=== PATIENT | male | born 1940 | race Caucasian/White ===

== ENCOUNTER 2017-12-28 07:38 | Day surgery (SDC) | payer MEDICARE, BC ==
[~2017-12-28 07:38] MED LIST: Acetaminophen TAB* 325 MG PO PRN; Buffered Lidocaine 0.9% SYRIN* 5 ML/SYR SYRINGE INTRADERM ONE; Cyclopentolate 1% OPTH.SOL* 2 ML BTL ONE; Ketorolac 0.5% OPHTH (NF) 0.5 % 5 ML BTL ONE; Lidocaine 1% MPF* 2 ML VIAL ONE; Neomycin/Polymy/Dex OPHTH.OIN* 3.5 GM ONE; Phenylephrine 2.5% OPTH.SOL* 2 ML BTL ONE; Povidone Iodine 5% OPTH* 30 ML BTL ONE; Tetracaine 0.5% OPTH.SOL 4 ML* 1 DROP BTL ONE; Tropicamide 1% OPTH.SOL* BTL ONE; acetaZOLAMIDE TAB* 250 MG ONE
[2017-12-28] MEDS ORDERED: Cyclopentolate 1% OPTH.SOL* 2 ML BTL ONE (07:51)
[2017-12-28] MEDS ORDERED: Phenylephrine 2.5% OPTH.SOL* 2 ML BTL ONE (07:51)
[2017-12-28] MEDS ORDERED: Povidone Iodine 5% OPTH* 30 ML BTL ONE (07:51)
[2017-12-28] MEDS ORDERED: Neomycin/Polymy/Dex OPTH.SUSP* MAXITROL 0.1% 5 ML ONE (07:51)
[2017-12-28] MEDS ORDERED: Ketorolac 0.5% OPHTH (NF) 0.5 % 5 ML BTL ONE (07:51)
[2017-12-28] MEDS ORDERED: acetaZOLAMIDE TAB* 250 MG ONE (07:51)
[2017-12-28] MEDS ORDERED: Lidocaine 1% MPF* 2 ML VIAL ONE (07:51)
[2017-12-28] MEDS ORDERED: Lidocaine 2% EPI 1:200000 MPF*10-20 ML VIAL ONE (07:51)
[2017-12-28] MEDS ORDERED: Proparacaine 0.5% OPHTH.SOL* 15 ML BTL ONE (07:52)
[2017-12-28] MEDS ORDERED: Midazolam* 1 MG/ML 2 ML VIAL (2 MG) ONE (09:07)
[2017-12-28] MEDS ORDERED: fentaNYL* 50 MCG/ML 2 ML VIAL (100 MCG VIAL) ONE (09:07)
[2017-12-28 10:44] VITALS: BP 109/76
--- NOTE | 2017-12-28 12:58 | OP ---
OPERATIVE NOTE: DATE OF OPERATION: 12/28/17 - [facility] DATE OF : 40 SURGEON: Nnamdi Charles M.D. PREOPERATIVE DIAGNOSIS: Cataract, left eye. POSTOPERATIVE DIAGNOSIS: Cataract, left eye. OPERATIVE PROCEDURE: Extracapsular cataract extraction with intraocular lens implant , left eye. PROCEDURE: The patient was brought to the operating room after being given 1/2 % Alcaine with epinephrine drops in the preoperative area. The eye was prepped and draped in the usual sterile fashion. Sterile drape and eyelid speculum were placed. Again, topical 1/2% Alcaine with epinephrine was given. A paracentesis incision was made at the 3 o'clock position with the No.75 blade. Clear cornea incision 2.2 x 2.2-mm was created at the 3 o'clock position starting at the anterior limbus using the 2.2-mm keratome. The anterior chamber was irrigated with 0.4 mL of 1% non-preservative intracameral lidocaine and filled with DisCoVisc. A capsulorrhexis was completed using the cystotome and the Utrata forceps. Hydrodissection was performed with balanced salt solution. The lens nucleus was removed with the Phacoemulsification handpiece without incident. Cortex was removed with the irrigation-aspiration handpiece. The capsular bag was re-inflated using DisCoVisc and an SN60WF 19.5 implant was inserted with the shooter. The irrigation-aspiration handpiece was used to remove all residual DisCoVisc. The eye was refilled with balanced salt solution and the wound checked and found to be watertight. Topical Maxitrol drops were given. [id number]/[facility] #: [id number] MTDD
== END 2017-12-28 10:35 | disposition home or self-care (01) ==
LOC: OREAST 07:38
PROVIDERS: ATTEND Specialist
DX: H25.812 Combined forms of age-related cataract, left eye (principal); H33.193 Other retinoschisis and retinal cysts, bilateral; Z95.1 Presence of aortocoronary bypass graft; Z85.51 Personal history of malignant neoplasm of bladder; I25.10 Atherosclerotic heart disease of native coronary artery without angina pectoris; I10 Essential (primary) hypertension; E78.5 Hyperlipidemia, unspecified
CPT/HCPCS: A9270-GY; J2250; J3010; V2632

== ENCOUNTER 2018-04-03 06:07 | Day surgery (SDC) | payer MEDICARE, BC ==
[~2018-04-03 06:07] MED LIST changes: -Acetaminophen TAB* 325 MG PO PRN; -Cyclopentolate 1% OPTH.SOL* 2 ML BTL ONE; -Ketorolac 0.5% OPHTH (NF) 0.5 % 5 ML BTL ONE; -Lidocaine 1% MPF* 2 ML VIAL ONE; -Neomycin/Polymy/Dex OPHTH.OIN* 3.5 GM ONE; -Phenylephrine 2.5% OPTH.SOL* 2 ML BTL ONE; -Povidone Iodine 5% OPTH* 30 ML BTL ONE; -Tetracaine 0.5% OPTH.SOL 4 ML* 1 DROP BTL ONE; -Tropicamide 1% OPTH.SOL* BTL ONE; -acetaZOLAMIDE TAB* 250 MG ONE
[2018-04-03] MEDS ORDERED: ceFAZolin 2 GM PREMIX (*) 2 GM/50 ML BAG IVPB ONE (06:08)
[2018-04-03] MEDS ORDERED: Lidocain 1% EPI 1:100,000 * 30 ML MDV ONE (07:12)
[2018-04-03] MEDS ORDERED: Bupivacaine 0.5% PF 10 ML VIAL INJ ONE (07:13)
[2018-04-03] MEDS ORDERED: fentaNYL* 50 MCG/ML 2 ML VIAL (100 MCG VIAL) ONE (07:31)
[2018-04-03] MEDS ORDERED: Midazolam* 1 MG/ML 2 ML VIAL (2 MG) ONE (07:31)
[2018-04-03] MEDS ORDERED: Lidocaine 2% PF * 5 ML VIAL ONE (07:36)
[2018-04-03] MEDS ORDERED: Propofol* 10 MG/ML 20 ML BTL IV PUSH ONE (07:36)
[2018-04-03] MEDS ORDERED: Naloxone* 0.4 MG/ML 1 ML VIAL IV PRN (08:36)
[2018-04-03] MEDS ORDERED: oxyCODONE/Acetamin 5/325 MG* TAB PO PRN (08:56)
[2018-04-03 09:35] VITALS: BP 143/81
--- NOTE | 2018-04-04 11:35 | OP ---
DATE OF OPERATION: 04/03/18 [facility] DATE OF : 40 SURGEON: Magdy Cordon MD RECORDS ANALYST: MONIKA Todd ANESTHESIOLOGIST: Dr. Caro. ANESTHESIA: Local with monitored anesthesia care. PRE-OP DIAGNOSIS: Left inguinal hernia. POST-OP DIAGNOSIS: Left indirect inguinal hernia. OPERATIVE PROCEDURE: Open repair with Covidien ProGrip mesh of a left direct inguinal hernia. ESTIMATED BLOOD LOSS: Minimal. FLUIDS: 1 L of crystalloid. SPECIMENS: None. WOUND CLASSIFICATION: I. DRAINS: None. DESCRIPTION OF PROCEDURE: Written and informed consent was obtained, the left groin was marked with indelible ink, and preoperative antibiotics were administered. The patient was taken to the operating room, placed in the supine position. Anesthesia was administered. The left lower abdomen and groin were prepped and draped in usual sterile fashion. Time-out verification was completed. 0.25% Marcaine mixed with 1% lidocaine with epinephrine was infiltrated in the left groin. An oblique incision was made several fingerbreadths above the inguinal crease. Porter's fascia was divided and the external oblique aponeurosis was identified and opened in the direction of its fibers to expose the underlying spermatic cord in the inguinal floor. Spermatic cord was encircled with an [id number] Thee drain at the pubic tubercle. The direct space appeared to be intact without evidence of hernia. Careful evaluation and dissection of the cord revealed a moderate sized indirect inguinal hernia sac, which was from the cord and its structures. This was then reduced into a somewhat patulous internal ring. Care was taken to prevent injury to the vas deferens and other spermatic cord contents. The internal ring was then plicated with several 3-0 Vicryl sutures in anticipation of mesh placement. Next, the ProGrip polyester mesh was then placed and sutured to pubic tubercle medially and then placed over the direct and indirect spaces without wrinkling or tension to reconstruct the internal ring. This mesh laid nicely and several 0 Vicryl sutures were used to adhere it to the inguinal ligament inferiorly in an interrupted fashion. Hemostasis was then assured. Additional Marcaine was infiltrated. The external oblique aponeurosis was closed with a running 3-0 Vicryl suture. Porter's fascia was closed with a running 3-0 Vicryl suture. The skin was approximated with subcuticular 4-0 running Vicryl suture. Steri-Strips and sterile dressings were applied. The patient tolerated the procedure well, was taken to recovery room in stable condition. [id number]/[facility] #: [id number]
== END 2018-04-03 10:08 | disposition home or self-care (01) ==
LOC: OR 06:07
PROVIDERS: ATTEND Surgery
DX: K40.90 Unilateral inguinal hernia, without obstruction or gangrene, not specified as recurrent (principal); R01.1 Cardiac murmur, unspecified; E78.2 Mixed hyperlipidemia; I25.10 Atherosclerotic heart disease of native coronary artery without angina pectoris; I10 Essential (primary) hypertension; E78.00 Pure hypercholesterolemia, unspecified; K21.9 Gastro-esophageal reflux disease without esophagitis; Z85.46 Personal history of malignant neoplasm of prostate; Z85.51 Personal history of malignant neoplasm of bladder
CPT/HCPCS: J0690; J2250; J2704; J3010

== ENCOUNTER 2024-05-17 14:25 | Inpatient (IN) ==
[2024-05-17] MEDS: Iodixanol (CONTRAST) 320 MG/ML 100 ML SDV IV ONE (14:51)
[2024-05-17 14:52] LABS: ABS Lymphocytes 0.8 10^3/uL (1.0-4.8); ABS Monocytes 0.7 10^3/uL (0.0-1.1); ABS Nucleated RBC 0.01 10^3/ul; Eosinophil % 0.2 %; Hematocrit 44.8 % (38-53); Hemoglobin 15.6 g/dL (13.2-16.3); Lymphocyte % 10.9 %; Mean Corpuscular Hemoglobin 29.7 pg (27-33); Mean Corpuscular Hgb Conc 34.7 g/dL (31-36); Mean Corpuscular Volume 85.4 fL (80-97); Mean Platelet Volume 7.6 fL (7.5-11.2); Nucleated Red Blood Cells % 0.1 %/100WBC (0.0-0.8); Platelet Count 146 10^3/uL (150-450); Red Blood Count 5.24 10^6/uL (4.06-5.63); Red Cell Distribution Width 13.6 % (12-17); White Blood Count 7.6 10^3/uL (3.6-10.2)
[2024-05-17 15:02] LABS: Activated Partial Thrombo Time 31.7 seconds (26.0-38.0); INR 1.21 (0.85-1.14)
[2024-05-17] MEDS: Lactated Ringers 1000 ml BAG 1,000 ML IV ONE (15:18)
[2024-05-17] MEDS: Acetaminophen IV 1 GM/100ML 1,000 MG/100 ML BAG IV ONE (15:18)
[2024-05-17] MEDS: Piperacillin/Tazobac 3.375 BAG 3.375 GM/100 ML BAG IV ONE (15:26)
[2024-05-17 15:54] LABS: Albumin 4.9 g/dL (3.2-5.2); Albumin/Globulin Ratio 2.1 (1-3); Calcium 9.6 mg/dL (8.6-10.3); Creatinine, Serum 1.09 mg/dL (0.67-1.17); Direct Bilirubin 0.3 mg/dL (0.03-0.18); Globulin 2.3 g/dL (2-4); HDL Cholesterol 39.6 mg/dL; Potassium 4.2 mmol/L (3.5-5.0); Total Bilirubin 1.3 mg/dL (0.2-1.0); Total Protein 7.2 g/dL (6.4-8.9); eGFR CKD-EPI 67.3 (>60)
[2024-05-17 16:06] LABS: TSH Ultra Thyroid Stim Horm 1.07 mcIU/mL (0.34-5.60)
[2024-05-17 18:10] LABS: Urine Appearance Clear; Urine Bilirubin Negative (Negative); Urine Blood Trace (Negative); Urine Color Light-Yellow; Urine Glucose Negative (Negative); Urine Ketones 1+ (Negative); Urine Nitrite Negative (Negative); Urine Protein Trace (Negative); Urine Specific Gravity 1.045 (1.002-1.030); Urine Urobilinogen Negative (Negative)
[2024-05-17] MEDS ORDERED: hydrALAZINE 20 mg/ml 1 ML Vial IV IV SLOW PU PRN (19:30)
[2024-05-17] MEDS ORDERED: Haloperidol 5 mg/ml SDV IV/IM 5 MG/ML AMP ONE (21:12)
[2024-05-17] MEDS: Haloperidol 5 mg/ml SDV IV/IM 5 MG/ML AMP IV SLOW PU ONE (21:15)
[2024-05-17] MEDS ORDERED: LORazepam 2 MG/ML 1 mL Syringe IV ONE (21:24)
[2024-05-17] MEDS ORDERED: LORazepam 2 mg VIAL 1 ml ONE (21:31)
[2024-05-17] MEDS: LORazepam 2 mg VIAL 1 ml IV PUSH ONE (21:34)
[2024-05-17] MEDS: cefTRIAXone 1 gm/50 mL D5W 1 GM/50 ML BAG IV SCH (21:54)
[2024-05-17] MEDS: Lactated Ringers 1000 ml BAG 1,000 ML IV SCH (21:54)
[2024-05-17] MEDS: DOXYcycline 100 MG in NS 0.9% 250 ml 250 ML IVPB ONE (23:43)
[2024-05-18 06:17] LABS: ABS Lymphocytes 0.8 10^3/uL (1.0-4.8); ABS Monocytes 0.8 10^3/uL (0.0-1.1); ABS Neutrophils 6.5 10^3/uL (1.5-7.6); Eosinophil % 0.1 %; Hematocrit 42.9 % (38-53); Hemoglobin 14.6 g/dL (13.2-16.3); Lymphocyte % 9.8 %; Mean Corpuscular Hemoglobin 29.5 pg (27-33); Mean Corpuscular Volume 86.7 fL (80-97); Mean Platelet Volume 7.3 fL (7.5-11.2); Platelet Count 133 10^3/uL (150-450); Red Blood Count 4.94 10^6/uL (4.06-5.63); Red Cell Distribution Width 13.6 % (12-17); White Blood Count 8.2 10^3/uL (3.6-10.2)
[2024-05-18 06:43] LABS: Calcium 8.8 mg/dL (8.6-10.3); Creatinine, Serum 1.3 mg/dL (0.67-1.17); eGFR CKD-EPI 54.2 (>60)
[2024-05-18 06:44] LABS: Albumin 4.3 g/dL (3.2-5.2); Total Bilirubin 1.2 mg/dL (0.2-1.0)
[2024-05-18 06:57] LABS: Albumin/Globulin Ratio 2.2 (1-3); Direct Bilirubin 0.2 mg/dL (0.03-0.18); Magnesium 1.5 mg/dL (1.9-2.7); Phosphorus 2.2 mg/dL (2.5-5.0); Total Protein 6.3 g/dL (6.4-8.9)
[2024-05-18] MEDS: Enoxaparin 40 MG/0.4 ML SYR SUBCUT SCH (07:25)
[2024-05-18] MEDS: Aspirin EC 81 mg TAB.EC (enteric coated) PO SCH (08:02)
[2024-05-18] MEDS: Magnesium Sulf 4 GM/100 ML IV 4,000 MG/100 ML BAG IVPB ONE (09:00)
[2024-05-18] MEDS ORDERED: Lactated Ringers 1000 ml BAG 1,000 ML IV SCH (11:00)
[2024-05-18] MEDS: Lactated Ringers 1000 ml BAG 1,000 ML IV ONE (11:20)
[2024-05-18] MEDS: cefTRIAXone 2 gm/50 mL D5W 2 GM/50 ML BAG IV SCH (12:05)
[2024-05-18 15:08] LABS: C Reactive Protein 2.24 mg/L (<8.01)
[2024-05-18] MEDS: Acetaminophen IV 1 GM/100ML 1,000 MG/100 ML BAG IV PRN ×2 (15:34→22:24)
[2024-05-18 15:45] LABS: RBC Parasite Smear No Parasites Seen (No Parasite)
[2024-05-18 15:53] LABS: C Reactive Protein 5.52 mg/L (<8.01)
[2024-05-18 17:02] LABS: Urine Appearance Clear; Urine Bilirubin Negative (Negative); Urine Blood 1+ (Negative); Urine Color Light-Yellow; Urine Glucose Negative (Negative); Urine Ketones 1+ (Negative); Urine Nitrite Negative (Negative); Urine Protein Trace (Negative); Urine Urobilinogen Negative (Negative); Urine pH 5.5 (5.0-8.0)
[2024-05-18 17:09] LABS: ABS Lymphocytes 0.8 10^3/uL (1.0-4.8); ABS Monocytes 1.3 10^3/uL (0.0-1.1); ABS Neutrophils 8.3 10^3/uL (1.5-7.6); ABS Nucleated RBC 0.01 10^3/ul; Hematocrit 38.6 % (38-53); Hemoglobin 13.1 g/dL (13.2-16.3); Lymphocyte % 7.6 %; Mean Corpuscular Hemoglobin 28.9 pg (27-33); Mean Corpuscular Hgb Conc 33.9 g/dL (31-36); Mean Corpuscular Volume 85.1 fL (80-97); Mean Platelet Volume 7.9 fL (7.5-11.2); Nucleated Red Blood Cells % 0.1 %/100WBC (0.0-0.8); Platelet Count 140 10^3/uL (150-450); Red Blood Count 4.53 10^6/uL (4.06-5.63); Red Cell Distribution Width 13.5 % (12-17); White Blood Count 10.4 10^3/uL (3.6-10.2)
[2024-05-18 17:18] LABS: Urine Bacteria Absent /HPF (Absent); Urine Red Blood Cell 1+(3-5/hpf) /HPF (0-Trace); Urine White Blood Cell Trace(0-5/hpf) /HPF (0-Trace)
[2024-05-18 17:45] LABS: Albumin 3.8 g/dL (3.2-5.2); Albumin/Globulin Ratio 2.2 (1-3); C Reactive Protein 6.34 mg/L (<8.01); Calcium 8.2 mg/dL (8.6-10.3); Creatinine, Serum 1.28 mg/dL (0.67-1.17); Direct Bilirubin 0.2 mg/dL (0.03-0.18); Globulin 1.7 g/dL (2-4); Indirect Bilirubin 0.8 mg/dL (0.3-1.0); Magnesium 2.3 mg/dL (1.9-2.7); Phosphorus 2.6 mg/dL (2.5-5.0); Potassium 3.5 mmol/L (3.5-5.0); Total Protein 5.5 g/dL (6.4-8.9); eGFR CKD-EPI 55.2 (>60)
[2024-05-18 18:41] LABS: Erythrocyte Sed Rate 14 mm/Hr (0-19)
[2024-05-18] MEDS: DOXYcycline 100 MG in NS 0.9% 250 ml 250 ML IVPB SCH (20:41)
[2024-05-19 05:37] LABS: ABS Neutrophils 8.2 10^3/uL (1.5-7.6); ABS Nucleated RBC 0.01 10^3/ul; Eosinophil % 0.1 %; Hematocrit 40.9 % (38-53); Hemoglobin 14.2 g/dL (13.2-16.3); Lymphocyte % 9.5 %; Mean Corpuscular Hemoglobin 29.6 pg (27-33); Mean Corpuscular Hgb Conc 34.8 g/dL (31-36); Mean Corpuscular Volume 84.9 fL (80-97); Mean Platelet Volume 7.7 fL (7.5-11.2); Nucleated Red Blood Cells % 0.1 %/100WBC (0.0-0.8); Platelet Count 124 10^3/uL (150-450); Red Blood Count 4.81 10^6/uL (4.06-5.63); Red Cell Distribution Width 13.7 % (12-17); White Blood Count 10.2 10^3/uL (3.6-10.2)
[2024-05-19 06:13] LABS: Albumin/Globulin Ratio 2.1 (1-3); C Reactive Protein 18.01 mg/L (<8.01); Calcium 8.7 mg/dL (8.6-10.3); Creatinine, Serum 1.25 mg/dL (0.67-1.17); Globulin 1.9 g/dL (2-4); Magnesium 2.1 mg/dL (1.9-2.7); Total Bilirubin 1.2 mg/dL (0.2-1.0); Total Protein 5.9 g/dL (6.4-8.9); eGFR CKD-EPI 56.8 (>60)
[2024-05-19 07:02] LABS: Erythrocyte Sed Rate 15 mm/Hr (0-19)
[2024-05-19] MEDS: Lactated Ringers 1000 ml BAG 1,000 ML IV SCH (12:25)
[2024-05-19] MEDS ORDERED: Calcium Carb (TUMS) 500 mg CHEW TAB PO PRN (17:22)
[2024-05-20 06:29] LABS: ABS Lymphocytes 0.6 10^3/uL (1.0-4.8); ABS Monocytes 0.8 10^3/uL (0.0-1.1); ABS Neutrophils 6.6 10^3/uL (1.5-7.6); Eosinophil % 0.3 %; Hematocrit 36.2 % (38-53); Hemoglobin 12.8 g/dL (13.2-16.3); Mean Corpuscular Hgb Conc 35.3 g/dL (31-36); Mean Corpuscular Volume 84.9 fL (80-97); Mean Platelet Volume 7.8 fL (7.5-11.2); Nucleated Red Blood Cells % 0.1 %/100WBC (0.0-0.8); Platelet Count 117 10^3/uL (150-450); Red Blood Count 4.27 10^6/uL (4.06-5.63); Red Cell Distribution Width 13.3 % (12-17)
[2024-05-20 06:53] LABS: Albumin 3.5 g/dL (3.2-5.2); Albumin/Globulin Ratio 2.1 (1-3); C Reactive Protein 24.23 mg/L (<8.01); Calcium 8.2 mg/dL (8.6-10.3); Creatinine, Serum 1.05 mg/dL (0.67-1.17); Globulin 1.7 g/dL (2-4); Magnesium 1.7 mg/dL (1.9-2.7); Potassium 3.4 mmol/L (3.5-5.0); Total Bilirubin 0.8 mg/dL (0.2-1.0); Total Protein 5.2 g/dL (6.4-8.9)
[2024-05-20] MEDS: Magnesium Sulfate 2 gm BAG 2 GM/50 ML BAG IVPB ONE (10:19)
[2024-05-20] MEDS: Magnesium Sulfate IV 1GM/100ML 1 GM/100 ML BAG IV ONE (11:36)
[2024-05-20] MEDS: Potassium Chlor 20 meq TAB.ER PO ONE (13:18)
[2024-05-20] MEDS: Lactated Ringers 1000 ml BAG 1,000 ML IV SCH (13:29)
[2024-05-20 23:47] LABS: Anaplasma phagocytophilum Negative (Negative); B. miyamotoi PCR, B Negative (Negative); Babesia divergens/MO-1 Negative (Negative); Babesia ducani Negative (Negative); Ehrlichia chaffeensis Negative (Negative); Ehrlichia ewingii/canis Negative (Negative); Ehrlichia muris eauclairensis Negative (Negative)
[2024-05-21 06:01] LABS: ABS Eosinophils 0.1 10^3/uL (0.0-0.5); ABS Lymphocytes 0.8 10^3/uL (1.0-4.8); ABS Monocytes 0.8 10^3/uL (0.0-1.1); ABS Neutrophils 4.3 10^3/uL (1.5-7.6); ABS Nucleated RBC 0.01 10^3/ul; Eosinophil % 1.3 %; Hematocrit 36.3 % (38-53); Hemoglobin 12.3 g/dL (13.2-16.3); Lymphocyte % 13.1 %; Mean Corpuscular Hemoglobin 29.1 pg (27-33); Mean Corpuscular Volume 85.6 fL (80-97); Mean Platelet Volume 8.2 fL (7.5-11.2); Nucleated Red Blood Cells % 0.1 %/100WBC (0.0-0.8); Platelet Count 125 10^3/uL (150-450); Red Blood Count 4.24 10^6/uL (4.06-5.63); Red Cell Distribution Width 13.5 % (12-17)
[2024-05-21 06:28] LABS: Albumin 3.2 g/dL (3.2-5.2); Albumin/Globulin Ratio 1.8 (1-3); C Reactive Protein 15.54 mg/L (<8.01); Creatinine, Serum 0.97 mg/dL (0.67-1.17); Globulin 1.8 g/dL (2-4); Magnesium 2.1 mg/dL (1.9-2.7); Potassium 3.4 mmol/L (3.5-5.0); Total Bilirubin 0.8 mg/dL (0.2-1.0)
[2024-05-21] MEDS: KCL 20 MEQ/100 ML IVPREMIX 20 MEQ/100 ML BAG IV ONE (09:54)
[2024-05-21] MEDS: Gadoteridol (CONTRAST) 279.3 MG/ML 10 ML IV ONE (11:27)
[2024-05-21] MEDS: Hyaluronidase HUMAN 15 UNIT in Sodium Chloride 0.9% 0.9 ML INTRADERM ONE (13:04)
[2024-05-22] MEDS: Acetaminophen IV 1 GM/100ML 1,000 MG/100 ML BAG IV PRN (03:14)
[2024-05-22 06:14] LABS: ABS Eosinophils 0.1 10^3/uL (0.0-0.5); ABS Lymphocytes 0.7 10^3/uL (1.0-4.8); ABS Monocytes 0.7 10^3/uL (0.0-1.1); ABS Neutrophils 3.9 10^3/uL (1.5-7.6); Eosinophil % 2.3 %; Hematocrit 38.4 % (38-53); Hemoglobin 12.8 g/dL (13.2-16.3); Lymphocyte % 12.3 %; Mean Corpuscular Hemoglobin 28.6 pg (27-33); Mean Corpuscular Hgb Conc 33.3 g/dL (31-36); Mean Corpuscular Volume 85.9 fL (80-97); Mean Platelet Volume 8.3 fL (7.5-11.2); Platelet Count 143 10^3/uL (150-450); Red Blood Count 4.47 10^6/uL (4.06-5.63); Red Cell Distribution Width 13.4 % (12-17); White Blood Count 5.4 10^3/uL (3.6-10.2)
[2024-05-22 06:31] LABS: Albumin 3.3 g/dL (3.2-5.2); Albumin/Globulin Ratio 1.9 (1-3); Calcium 8.4 mg/dL (8.6-10.3); Creatinine, Serum 0.99 mg/dL (0.67-1.17); Globulin 1.7 g/dL (2-4); Magnesium 1.9 mg/dL (1.9-2.7); Potassium 3.7 mmol/L (3.5-5.0); Total Bilirubin 0.7 mg/dL (0.2-1.0); eGFR CKD-EPI 75.1 (>60)
[2024-05-23 06:18] LABS: ABS Eosinophils 0.1 10^3/uL (0.0-0.5); ABS Lymphocytes 0.5 10^3/uL (1.0-4.8); ABS Monocytes 0.5 10^3/uL (0.0-1.1); ABS Neutrophils 4.6 10^3/uL (1.5-7.6); Eosinophil % 2.2 %; Hematocrit 37.5 % (38-53); Hemoglobin 12.9 g/dL (13.2-16.3); Lymphocyte % 9.1 %; Mean Corpuscular Hemoglobin 29.5 pg (27-33); Mean Corpuscular Hgb Conc 34.4 g/dL (31-36); Mean Corpuscular Volume 85.8 fL (80-97); Mean Platelet Volume 8.2 fL (7.5-11.2); Platelet Count 159 10^3/uL (150-450); Red Blood Count 4.37 10^6/uL (4.06-5.63); Red Cell Distribution Width 13.8 % (12-17); White Blood Count 5.8 10^3/uL (3.6-10.2)
[2024-05-23 06:36] LABS: Albumin 3.6 g/dL (3.2-5.2); Albumin/Globulin Ratio 1.8 (1-3); Calcium 8.9 mg/dL (8.6-10.3); Creatinine, Serum 0.96 mg/dL (0.67-1.17); Magnesium 1.8 mg/dL (1.9-2.7); Potassium 3.6 mmol/L (3.5-5.0); Total Bilirubin 0.6 mg/dL (0.2-1.0); Total Protein 5.6 g/dL (6.4-8.9); eGFR CKD-EPI 77.9 (>60)
[2024-05-23] MEDS: Magnesium Sulfate 2 gm BAG 2 GM/50 ML BAG IVPB ONE (08:33)
[2024-05-24 06:41] LABS: ABS Eosinophils 0.1 10^3/uL (0.0-0.5); ABS Lymphocytes 0.6 10^3/uL (1.0-4.8); ABS Monocytes 0.8 10^3/uL (0.0-1.1); ABS Neutrophils 5.8 10^3/uL (1.5-7.6); Hematocrit 37.6 % (38-53); Lymphocyte % 7.9 %; Mean Corpuscular Hemoglobin 29.8 pg (27-33); Mean Corpuscular Hgb Conc 34.6 g/dL (31-36); Mean Corpuscular Volume 86.3 fL (80-97); Platelet Count 195 10^3/uL (150-450); Red Blood Count 4.35 10^6/uL (4.06-5.63); Red Cell Distribution Width 13.2 % (12-17); White Blood Count 7.2 10^3/uL (3.6-10.2)
[2024-05-24 06:59] LABS: Albumin 3.6 g/dL (3.2-5.2); Albumin/Globulin Ratio 1.8 (1-3); Calcium 8.4 mg/dL (8.6-10.3); Creatinine, Serum 0.88 mg/dL (0.67-1.17); Potassium 3.9 mmol/L (3.5-5.0); Total Bilirubin 0.7 mg/dL (0.2-1.0); Total Protein 5.6 g/dL (6.4-8.9); eGFR CKD-EPI 84.8 (>60)
[2024-05-24 10:03] VITALS: BP 118/78
== END 2024-05-24 10:52 | disposition home or self-care (01) | DRG 71 ==
LOC: ED 14:25 → EDHOLD 19:18 → SUATTDRO 19:18 → MEDTELE 05-18 04:20
PROVIDERS: ADMIT Internal Medicine; ATTEND Student in an Organized Health Care Education/Training Program